=== PATIENT | male | born 1965 | race Caucasian/White ===

== ENCOUNTER → 2019-05-12 16:47 | Outpatient (CLI) | payer OTHER, SELFPAY ==
[2019-05-12 18:46] LABS: Alanine Aminotransferase 20 IU/L (<50); Albumin 4.9 g/dL (3.5-5.0); Alkaline Phosphatase 72 U/L (38-126); Aspartate Aminotransferase 22 IU/L (17-59); BUN Creatinine Ratio 16.3 (6-22); Bilirubin Total 0.8 mg/dL (0.2-1.3); Blood Urea Nitrogen 13 mg/dL (9-20); Calcium 10.2 mg/dL (8.4-10.2); Carbon Dioxide 30 mmol/L (22-32); Chloride 102 mmol/L (98-107); Cholesterol 166 mg/dL (140-199); Estimated Glomerular Filt Rate > 60.0 mL/min (>60); Globulin 2.5 g/dL (1.7-4.1); Glucose 90 mg/dL (70-100); HDL Cholesterol 51 mg/dL (40-60); HEMOLYSIS < 15 (0-50); LDL Cholesterol Calculated 85 mg/dL (<100); Potassium 5.2 mmol/L (3.4-5.1); Sodium 141 mmol/L (137-145); Total Protein 7.4 g/dL (6.3-8.2); Triglycerides 151 mg/dL (35-150)
[2019-05-12 19:16] LABS: Prostate Specific Antigen 1.74 ng/mL (0.10-4.00)
== END ==
PROVIDERS: PCP Family Medicine; Visit Provider Family Medicine
DX: Z00.01 Encounter for general adult medical examination with abnormal findings (principal); Z12.5 Encounter for screening for malignant neoplasm of prostate; Z13.1 Encounter for screening for diabetes mellitus; Z13.220 Encounter for screening for lipoid disorders
CPT/HCPCS: 36415; 80053; 80061; 83036; 84153

== ENCOUNTER 2019-06-10 15:20 | Emergency (ER) | payer OTHER, SELFPAY ==
[2019-06-10 15:32] VITALS: BP 122/72; PULSE 78; RESP 16; TEMP 36.6; O2SAT 97; BMI 25.5
--- NOTE | 2019-06-10 18:07 | ED.EYEPROB ---
HPI - Eye Problem General Chief complaint: Eye Problems Stated complaint: possible foreign body in left eye Time Seen by Provider: 06/10/19 18:06 Source: patient Mode of arrival: Ambulatory Limitations: no limitations History of Present Illness HPI Narrative: 53M former smoker without contributory medical history presents with a few days of foreign body sensation in his L eye. He doesn't know if he remembers a specific occurrence exposure to foreign body but specifically states no welding, metal grinding or particularly memorable event. He has developed some pain and swelling of his left upper eyelid and has been using warm compresses. He does admit to a minimal amount of exudate. Patient does not wear contacts. He denies any significant change in vision, but states maybe it's a bit blurry. chief complaint: eye pain Onset (ago): day(s) Onset description: gradual Duration: constant Location: left eye Eye Symptoms: foreign body sensation and blurry vision Severity: mild If Pain, Quality: aching Associated symptoms: none Treatments Prior to Arrival: none Related Data Previous Rx's Medication Instructions Recorded doxycycline hyclate 100 mg PO BID #20 tab 06/10/19 sulfacetamide sodium 1 drop EYE-LEFT Q2H #15 ml 06/10/19 Allergies Allergy/AdvReac Type Severity Reaction Status Date / Time Penicillins Allergy Severe Swelling Verified 06/10/19 15:36 of Lip/Tongue/Throat Review of Systems Constitutional Constitutional: Denies chills, Denies fatigue, Denies fever(s), Denies frequent falls, Denies lethargy and Denies weakness Eyes Eyes: Reports blurry vision, Denies change in vision, Denies eye discharge, Reports irritation and Denies loss of vision ENT Ears, Nose, Mouth, and Throat: Denies change in voice, Denies dizziness, Denies neck pain, Denies sore throat and Denies throat swelling Cardiovascular Cardiovascular: Denies chest pain, Denies irregular heart rhythm, Denies lightheadedness, Denies palpitations, Denies dyspnea, Denies dyspnea on exertion and Denies orthopnea Respiratory Respiratory: Denies cough, Denies dyspnea, Denies dyspnea on exertion and Denies wheezing Gastrointestinal Gastrointestinal: Denies abdominal pain, Denies change in bowel habits, Denies diarrhea, Denies nausea and Denies vomiting Genitourinary Genitourinary: Denies hematuria, Denies flank pain, Denies urinary incontinence and Denies urinary urgency Musculoskeletal Musculoskeletal: Denies back pain, Denies muscle weakness, Denies neck pain, Denies numbness and Denies tingling Integumentary/Breasts Skin/Breast: Denies pruritus, Reports erythema, Denies rash, Reports skin pain, Reports skin swelling and Denies wounds Comments: Left upper lid swelling and pain Neurologic Neurologic: Denies behavioral changes, Denies confusion, Denies dizziness, Denies frequent falls, Denies loss of vision, Denies numbness, Denies tingling and Denies weakness Psychiatric Psychiatric: Denies anxiety, Denies behavioral changes, Denies confusion, Denies depression, Denies homicidal ideation and Denies suicidal ideation Endocrine Endocrine: Denies fatigue, Denies flushing and Denies palpitations Hematologic/Lymphatic Hematologic/Lymphatic: Denies easy bruising Allergic/Immunologic Allergic/Immunologic: Denies urticaria, Denies throat swelling and Denies wheezing Patient History Medical History Chicken pox (Resolved ~1972) Fractures (Resolved) Tobacco abuse, in remission (Acute) Family History Father Hyperlipidemia Hypertension Mother Cancer Social History Smoking Status: Former smoker Tobacco: How many years used: 8 quit status: has quit before second hand exposure: Yes alcohol intake: current (2-3 drinks per wk ) substance use type: marijuana (1 hit off a pipe per month) Smoking Status: Former smoker alcohol intake frequency: 0-2 drinks per day Alcohol type: beer Substance Use Type: does not use Exam Narrative Exam Narrative: GEN: AOx3 and in mild distress EYES: Pupils are equal, round, and reactive to light and accommodation. Extraoccular muscles are intact bilaterally. There is no subconjunctival hemorrhage or exudate. Left upper lid a bit swollen and erythematous. Lid everted and NO FB noted. Viewed under UV with fluoroscein and no dye uptake noted. CHEST: Lungs are clear to auscultation bilaterally and free of wheezes, rales, or rhonchi. Heart rate is regular rhythm, there are no murmurs, clicks, rubs, or gallops. There is no chest wall tenderness. ABD: Abdomen is soft and nontender. There is no guarding or rebound. Bowel sounds are normal in all 4 quadrants. There is no mass or organomegaly. EXT: Full painless ROM of all extremities with no loss of sensation or strength. SKIN: Warm, pink, and dry. No erythema or rash of exposed areas other than that which is noted above Initial Vital Signs Initial Vital Signs: Vital Signs Temperature 97.8 F 06/10/19 15:32 Pulse Rate 78 06/10/19 15:32 Respiratory Rate 16 06/10/19 15:32 Blood Pressure 122/72 06/10/19 15:32 Pulse Oximetry 97 06/10/19 15:32 Course Orders Ordered: Discontinued Medications Fluorescein Sodium (Ful-Deanna) 1 mg EYE-LEFT NOW ONE Stop: 06/10/19 18:12 Last Admin: 06/10/19 18:29 Dose: 1 mg Documented by: MICAH Proparacaine HCl (Parcaine 0.5% Ophth Hoa) 1 drops EYE-LEFT NOW ONE Stop: 06/10/19 18:12 Last Admin: 06/10/19 18:29 Dose: 1 1000units Documented by: MICAH Vital Signs Vital signs: Vital Signs - 8 hr 06/10/19 18:31 Pulse Rate 62 Respiratory Rate 16 Blood Pressure 120/84 Pulse Oximetry 100 MDM - Eye Problem MDM Narrative Medical decision making narrative: FB complaint without noted FB or abrasion. Likely a consequence of blepharitis. Swelling, but no firm induration or fluctuance to suggest abscess requiring I/D. Return precautions given and questions answered to his apparent satisfaction. Discharge Plan Departure Patient Disposition: Home Clinical Impression: Blepharitis of eyelid of left eye Qualifiers: Blepharitis type: unspecified type Eyelid: upper Qualified Code(s): H01.004 - Unspecified blepharitis left upper eyelid Conjunctivitis Qualifiers: Conjunctivitis type: other Laterality: left Qualified Code(s): H10.89 - Other conjunctivitis Discharge Date/Time: 06/10/19 18:32 Instructions: DI for Blepharitis Activity Restrictions/Additional Instructions: *You have been diagnosed with [left upper lid blepharitis and possible conjunctivitis] *What to do: *Take medications as directed: [facility] *Follow up with your primary care provider in 2-3 days, call for an appointment. Let them know you were seen in the Emergency Department and that we ask that you be seen in follow up *Return to ER if you should have any new, worsening or concerning symptom Prescriptions: New doxycycline hyclate 100 mg tablet 100 mg PO BID Qty: 20 RF: 0 sulfacetamide sodium 10 % drops 1 drop EYE-LEFT Q2H Qty: 15 RF: 0 Referrals: Addison Parnell, [Primary Care Provider] -
[2019-06-10] MEDS: PROPARACAINE 0.5% OPHTH SOL 1 DROPS EYE-LEFT (18:29)
[2019-06-10] MEDS: FLUORESCEIN 1 MG STRIP EYE-LEFT (18:29)
[2019-06-10 18:31] VITALS: BP 120/84; PULSE 62; RESP 16; O2SAT 100
== END 2019-06-10 18:32 | disposition home or self-care (01) ==
PROVIDERS: Emergency Provider Emergency Medicine; PCP Family Medicine
DX: H01.004 Unspecified blepharitis left upper eyelid (principal); H10.89 Other conjunctivitis
CPT/HCPCS: 99282; 99283

== ENCOUNTER → 2022-03-20 10:20 | Outpatient (CLI) | payer OTHER, SELFPAY ==
[2022-03-20 11:08] LABS: Add Manual Diff / Slide Review NO; Basophils Absolute Auto 0 /uL (0-100); Basophils Percent Auto 0.4 % (0-2); Eosinophils Absolute Auto 100 /uL (0-450); Eosinophils Percent Auto 1.3 % (2-4); Hematocrit 47.4 % (41-53); Hemoglobin 16.2 g/dL (13.5-17.5); Lymphocytes Absolute Auto 1000 /uL (1100-4500); Lymphocytes Percent Auto 9.9 % (25-40); Mean Corpuscular HGB Conc 34.2 % (30-36); Mean Corpuscular Hemoglobin 29.4 PG (26-34); Mean Corpuscular Volume 85.8 fL (80-100); Monocytes Absolute Auto 600 /uL (0-900); Monocytes Percent Auto 5.6 % (3-14); Neutrophils Absolute Auto 8100 /uL (1500-7000); Neutrophils Percent Auto 82.8 % (50-75); Platelet Count 156 X10^3/uL (150-400); Red Blood Cell Count 5.52 X10^6/uL (4.5-5.9); Red Cell Distribution Width 13.6 % (11.6-14.8); White Blood Cell Count 9.8 X10^3/uL (4.5-11.0)
[2022-03-20 12:04] LABS: Alanine Aminotransferase 24 IU/L (<50); Albumin 4.4 g/dL (3.5-5.0); Albumin Globulin Ratio 1.8 (1.0-2.8); Alkaline Phosphatase 66 U/L (38-126); Aspartate Aminotransferase 22 IU/L (17-59); BUN Creatinine Ratio 14.6 (6-22); Bilirubin Total 0.7 mg/dL (0.2-1.3); Blood Urea Nitrogen 12 mg/dL (9-20); Calcium 9.3 mg/dL (8.4-10.2); Carbon Dioxide 27 mmol/L (22-32); Chloride 102 mmol/L (98-107); Cholesterol 160 mg/dL (140-199); Estimated Glomerular Filt Rate > 60 mL/min (>60); Globulin 2.5 g/dL (1.7-4.1); Glucose 93 mg/dL (70-100); HDL Cholesterol 37 mg/dL (40-60); HEMOLYSIS < 15 (0-50); LDL Cholesterol Calculated 97 mg/dL (<100); Sodium 140 mmol/L (137-145); Total Protein 6.9 g/dL (6.3-8.2); Triglycerides 128 mg/dL (35-150)
[2022-03-20 12:28] LABS: Prostate Specific Antigen Scrn 1.05 ng/mL (0.1-4.0)
[2022-03-20 12:29] LABS: Thyroid Stimulating Hormone 1.36 uIU/mL (0.47-4.68)
== END ==
PROVIDERS: PCP Family Medicine; Referring Provider Family Medicine; Visit Provider Family Medicine
DX: Z13.220 Encounter for screening for lipoid disorders (principal); Z12.5 Encounter for screening for malignant neoplasm of prostate; R53.83 Other fatigue
CPT/HCPCS: 36415; 80053; 80061; 84443; 85025; G0103

== ENCOUNTER → 2023-01-20 15:40 | Outpatient (CLI) | payer OTHER, SELFPAY ==
--- NOTE | 2023-01-20 15:41 | DI.RAD.S_ITS ---
PROCEDURE: XR CHEST 2V INDICATIONS: Cough with weight loss TECHNIQUE: 2 views of the chest were acquired. COMPARISON: None. FINDINGS: Surgical changes and devices: None. Lungs and pleura: Lungs are clear. No pleural effusions or pneumothorax. Mediastinum: Mediastinal contours are normal. Heart size is normal. Bones and chest wall: No suspicious bony abnormalities. Soft tissues appear unremarkable. IMPRESSION: No acute cardiopulmonary abnormality. Dictated by: Sergio Huff M.D. on 01/20/2023 at 18:28 Approved by: Sergio Huff M.D. on 01/20/2023 at 18:29
== END ==
PROVIDERS: PCP Family Medicine; Referring Provider Family Medicine; Visit Provider Family Medicine
DX: R05.3 Chronic cough (principal)
CPT/HCPCS: 71046

== ENCOUNTER → 2023-06-16 10:35 | Outpatient (CLI) | payer OTHER, SELFPAY ==
--- NOTE | 2023-06-16 10:37 | DI.RAD.S_ITS ---
PROCEDURE: XR THORACIC SPINE 3V INDICATIONS: eval back pain TECHNIQUE: 3 views of the thoracic spine were acquired. COMPARISON: None. FINDINGS: Bones: Mild levoscoliosis of the thoracolumbar spine noted. Kyphotic deformity is also noted. No acute fracture or subluxation seen. Mild spondylolisthesis of the lower thoracolumbar spine is only partially visualized. Soft tissues: No paravertebral stripe thickening. IMPRESSION: No acute findings Kyphosis and mild scoliosis Minimal spondylolisthesis of the lower thoracolumbar spine, partially visualized. Dictated by: Tien Monson M.D. on 06/16/2023 at 14:46 Approved by: Tien Monson M.D. on 06/16/2023 at 14:50
== END ==
PROVIDERS: PCP Family Medicine; Referring Provider Family Medicine; Visit Provider Family Medicine
DX: M40.205 Unspecified kyphosis, thoracolumbar region (principal); M79.89 Other specified soft tissue disorders; M54.9 Dorsalgia, unspecified
CPT/HCPCS: 72072